=== PATIENT | male | born 1980 | race Caucasian/White ===

== ENCOUNTER 2017-01-22 07:05 | Day surgery (SDC) | payer MEDICARE ==
[~2017-01-22] VITALS: Ht 177.8 cm; Wt 83.9 kg
[~2017-01-22 07:05] MED LIST: APTIOM400 MG PO; ATIVAN1 MG PO; BACTRIM DS1 TAB PO; CARBATROL300 MG PO; CELEXA20 M1 PO; CIPRO HC AS; CLONAZEPAM1 MG PO; CORTISPORIN OTI10 ML AS; DOXYCYCL HYC100 MG PO; KEPPRA250 MG; LOPRESSOR 550 MG/TAB PO; LORCET 5-325 MG1 TAB PO; LORTAB 10-325 M1 TAB PO; LORTAB 5/3255 MG PO; LORTAB5 PO; LYRICA150 MG PO; LYRICA25 MG PO; Lyrica PO; METO50TA52 PO; NAPROSYN500 MG PO; TEGRETOL PO; TEGRETOL200 MG PO; TOPAMAX25 MG OR; TRAMADOL HCL50 MG PO; ULTRAM50 MG OR; VIMPAT50 MG PO; ZOFRAN4 MG/TAB PO; [UNRECOGNIZED DRUG - OTHER] OR; [UNRECOGNIZED DRUG - OTHER] PO
[2017-01-22 10:24] VITALS: BP 127/82
== END 2017-01-22 10:55 | disposition home or self-care (01) ==
LOC: ORM 07:05
PROVIDERS: ATTEND Surgery
PROC: 0HB6XZZ Excision of Back Skin, External Approach (ICD-10-PCS; principal; 2017-01-22)
DX: L72.3 Sebaceous cyst (principal); G40.909 Epilepsy, unspecified, not intractable, without status epilepticus